=== PATIENT | male | born 1980 | race Caucasian/White ===

== ENCOUNTER 2016-10-20 14:30 | Emergency (ER) | payer SELFPAY ==
[2016-10-20] MEDS ORDERED: HYDROcodone/Acetaminophen 10/325 mg Tablet ONE (15:30)
[2016-10-20] MEDS ORDERED: Naproxen 500 MG TAB ONE (15:30)
[2016-10-20] MEDS ORDERED: Triple Antibiotic Ointment 15 GM TUBE ONE (15:31)
[2016-10-20] MEDS ORDERED: Cephalexin 500 MG CAP ONE (15:31)
[2016-10-20] MEDS ORDERED: Sulfameth/Trimethoprim DS 800-160mg TAB ONE (15:31)
[2016-10-20] MEDS ORDERED: Triple Antibiotic Oint 1 GM Packet ONE (15:32)
== END 2016-10-20 15:55 | disposition home or self-care (01) ==
LOC: MADERS 14:30
DX: L02.611 Cutaneous abscess of right foot (principal); F17.210 Nicotine dependence, cigarettes, uncomplicated
CPT/HCPCS: 99282

== ENCOUNTER 2017-04-27 19:05 | Emergency (ER) | payer SELFPAY ==
[2017-04-27] MEDS ORDERED: Ondansetron ODT 4 MG TAB ONE (20:44)
[2017-04-27] MEDS ORDERED: AMOXicillin 250 MG CAP ONE (20:45)
[2017-04-27] MEDS ORDERED: Acetaminophen/Codeine 30-300mg Tablet ONE (20:54)
== END 2017-04-27 21:10 | disposition home or self-care (01) ==
LOC: MADERS 19:05
DX: K03.81 Cracked tooth (principal); K04.7 Periapical abscess without sinus; K02.9 Dental caries, unspecified; F17.210 Nicotine dependence, cigarettes, uncomplicated
CPT/HCPCS: 96372; J2270; Q0162

== ENCOUNTER 2017-05-29 21:20 | Emergency (ER) | payer SELFPAY ==
[2017-05-29] MEDS ORDERED: Ondansetron ODT 4 MG TAB ONE (21:40)
[2017-05-29] MEDS ORDERED: Ketorolac Tromethamine 30 MG/ML VIAL ONE (21:40)
[2017-05-29] MEDS ORDERED: Promethazine HCl 25 MG/ML VIAL ONE (21:40)
[2017-05-29] MEDS ORDERED: HYDROcodone/Acetaminophen 5/325 mg Tablet ONE (21:42)
[2017-05-29] MEDS ORDERED: Ketorolac Tromethamine 60 MG/2 ML VIAL ONE (21:42)
[2017-05-29] MEDS ORDERED: Penicillin V Potassium 250 MG TAB ONE (21:42)
== END 2017-05-29 22:06 | disposition home or self-care (01) ==
LOC: MADERS 21:20
DX: K08.89 Other specified disorders of teeth and supporting structures (principal); F17.210 Nicotine dependence, cigarettes, uncomplicated
CPT/HCPCS: 96372; J1885; J2550; Q0162

== ENCOUNTER 2017-06-13 05:53 | Emergency (ER) | payer SELFPAY ==
[2017-06-13] MEDS ORDERED: Cephalexin 500 MG CAP ONE (07:07)
[2017-06-13] MEDS ORDERED: Sulfameth/Trimethoprim DS 800-160mg TAB ONE (07:07)
[2017-06-13] MEDS ORDERED: Adacel (T-DAP) 0.5 ML VIAL ONE (07:17)
== END 2017-06-13 07:35 | disposition home or self-care (01) ==
LOC: MADERS 05:53
DX: L02.511 Cutaneous abscess of right hand (principal); F17.210 Nicotine dependence, cigarettes, uncomplicated
CPT/HCPCS: 26010; 87070; 87077; 87186; 87205; 90715; J2001